=== PATIENT | female | born 1940 | race Caucasian/White ===

== ENCOUNTER 2017-10-17 18:51 | Inpatient (IN) | payer MEDICARE, OTHER ==
[~2017-10-17] VITALS: Ht 160 cm; Wt 83.4 kg
[2017-10-17 19:53] VITALS: BP 142/65; PULSE 67; TEMP 97.8
[2017-10-17 20:18] LABS: PARTIAL THROMBOPLASTIN TIME 129.5 SECONDS (26.0-37.0)
[2017-10-17 21:01] LABS: INR 1.1 (0.8-3.0); PROTHROMBIN TIME 12.2 SECONDS (9.7-12.8)
[2017-10-17] MEDS ORDERED: ALLEGRA 180MG180 MG PO (21:12)
[2017-10-17] MEDS ORDERED: ASPIRIN 81M81 MG/TA2 PO (21:12)
[2017-10-17] MEDS ORDERED: FERRO-TIME325 MG PO (21:13)
[2017-10-17] MEDS ORDERED: CITRACAL + D CA1 TAB (21:13)
[2017-10-17] MEDS ORDERED: THE MEDICINE S200 M2 PO (21:13)
[2017-10-17] MEDS ORDERED: METAMUCIL3.4 GM/DOS PO (21:14)
[2017-10-17] MEDS ORDERED: ZESTRIL 20MG TA20 MG PO (21:14)
[2017-10-17] MEDS ORDERED: MULTI VITAMINS1 TAB PO (21:15)
[2017-10-17] MEDS ORDERED: BETIMOL 0.5% OPH5 ML OU (21:16)
[2017-10-17] MEDS ORDERED: ULTRAM 50MG TAB50 MG PO (21:17)
[2017-10-17] MEDS ORDERED: TYLENOL 325MG325 MG PO (21:17)
[2017-10-17] MEDS ORDERED: VITAMIN D 400400 IU PO (21:19)
[2017-10-17] MEDS ORDERED: VITAMIN B100 CO1 TAB PO (21:19)
[2017-10-17 21:20] LABS: ALANINE AMINOTRANSFERASE 28 U/L (9-52); ALBUMIN 3.7 gm/dL (3.5-5.0); ALKALINE PHOSPHATASE 117 U/L (50-136); ANION GAP 6 mmol/L (7-16); AST,SGOT 28 U/L (15-37); BILIRUBIN,TOTAL 0.4 mg/dL (0.0-1.0); BLOOD UREA NITROGEN 14 mg/dL (7-17); CALCIUM 9.2 mg/dL (8.4-10.2); CARBON DIOXIDE 25 mmol/L (22-30); CHLORIDE 103 mmol/L (98-107); CHOLESTEROL 161 mg/dL (120-200); CHOLESTEROL RISK RATIO 2.3; CREATININE, serum 0.74 mg/dL (0.52-1.25); GLUCOSE 161 mg/dL (74-106); HDL CHOLESTEROL 68 mg/dL; LDL CHOLESTEROL 73 mg/dL; POTASSIUM 3.8 mmol/L (3.4-5.0); SODIUM 134 mmol/L (137-145); TOTAL PROTEIN 6.8 gm/dL (6.4-8.2); TRIGLYCERIDE 102 mg/dL
[2017-10-17 21:31] LABS: BASO % 0.7 % (0.0-2.0); EOS # 0.3 (0.0-0.7); EOS % 5.6 % (0-4.0); GRAN % 49.9 % (42.2-75.2); HEMATOCRIT 38.6 % (37.0-47.0); HEMOGLOBIN 13.1 g/dl (12.5-16.0); LYMPH % 32.7 % (20.0-51.0); MEAN CELL VOLUME 92 fl (80.0-100.0); MEAN CORPUSCULAR HEMOGLOBIN 31 pg (27.0-31.0); MEAN CORPUSCULAR HGB CONC 34 g/dl (33.0-37.0); MEAN PLATELET VOLUME 11.8 fl (7.4-10.4); MONO # 0.7 (0.1-0.6); MONO % 10.9 % (1.7-9.3); PLATELET COUNT 180 K/mm3 (130-400); RED BLOOD COUNT 4.18 M/mm3 (4.10-5.30); REDCELL DISTRIBUTION WIDTH-CV 13.4 % (11.5-14.5); TROPONIN-I < 0.012 ng/mL (0.000-0.034)
[2017-10-17 23:28] VITALS: BP 159/54; PULSE 57; TEMP 98.6
[2017-10-18] VITALS (14 sets, daily range): BP systolic 94–160; BP diastolic 56–80; PULSE 53–82; TEMP 97.8–98.6
[2017-10-18 06:44] LABS: HEMATOCRIT 37.6 % (37.0-47.0); HEMOGLOBIN 12.7 g/dl (12.5-16.0); MEAN CELL VOLUME 93 fl (80.0-100.0); MEAN CORPUSCULAR HEMOGLOBIN 31 pg (27.0-31.0); MEAN CORPUSCULAR HGB CONC 34 g/dl (33.0-37.0); MEAN PLATELET VOLUME 11.1 fl (7.4-10.4); PLATELET COUNT 180 K/mm3 (130-400); RED BLOOD COUNT 4.05 M/mm3 (4.10-5.30); REDCELL DISTRIBUTION WIDTH-CV 13.4 % (11.5-14.5)
[2017-10-18 06:50] LABS: PROTHROMBIN TIME 11.8 SECONDS (9.7-12.8)
[2017-10-18 06:57] LABS: ANION GAP 5 mmol/L (7-16); BLOOD UREA NITROGEN 13 mg/dL (7-17); CALCIUM 8.9 mg/dL (8.4-10.2); CARBON DIOXIDE 28 mmol/L (22-30); CHLORIDE 105 mmol/L (98-107); GLUCOSE 115 mg/dL (74-106); POTASSIUM 3.9 mmol/L (3.4-5.0); SODIUM 138 mmol/L (137-145)
[2017-10-18 07:09] LABS: TROPONIN-I < 0.012 ng/mL (0.000-0.034)
[2017-10-19 00:31] VITALS: BP 126/53; PULSE 65; TEMP 97.8
[2017-10-19 03:34] VITALS: BP 124/55; PULSE 57; TEMP 98
[2017-10-19 07:29] LABS: BASO % 0.4 % (0.0-2.0); EOS # 0.3 (0.0-0.7); EOS % 5.3 % (0-4.0); GRAN # 3.1 (1.4-6.5); GRAN % 62.2 % (42.2-75.2); HEMATOCRIT 39.4 % (37.0-47.0); HEMOGLOBIN 13.3 g/dl (12.5-16.0); LYMPH # 0.9 (1.2-3.4); LYMPH % 19.2 % (20.0-51.0); MEAN CELL VOLUME 93 fl (80.0-100.0); MEAN CORPUSCULAR HEMOGLOBIN 31 pg (27.0-31.0); MEAN CORPUSCULAR HGB CONC 34 g/dl (33.0-37.0); MEAN PLATELET VOLUME 11.7 fl (7.4-10.4); MONO # 0.6 (0.1-0.6); MONO % 12.7 % (1.7-9.3); PLATELET COUNT 189 K/mm3 (130-400); RED BLOOD COUNT 4.24 M/mm3 (4.10-5.30); REDCELL DISTRIBUTION WIDTH-CV 13.4 % (11.5-14.5)
[2017-10-19 07:33] VITALS: BP 140/64; PULSE 59; TEMP 98.4
[2017-10-19 07:38] LABS: CALCIUM 9.2 mg/dL (8.4-10.2); CREATININE, serum 0.72 mg/dL (0.52-1.25); POTASSIUM 3.9 mmol/L (3.4-5.0)
[2017-10-19] MEDS ORDERED: BRILINTA90 MG PO (07:47)
[2017-10-19] MEDS ORDERED: LIPITOR 40MG TA40 MG PO (08:49)
== END 2017-10-19 10:22 | disposition home or self-care (01) | DRG 247 ==
LOC: MEDICAL 18:51
PROVIDERS: Internal Medicine; Internal Medicine Cardiovascular Disease; Nurse Practitioner Family
PROC: 027034Z Dilation of Coronary Artery, One Artery with Drug-eluting Intraluminal Device, Percutaneous Approach (ICD-10-PCS; principal; 2017-10-18)
PROC: B2111ZZ Fluoroscopy of Multiple Coronary Arteries using Low Osmolar Contrast (ICD-10-PCS; 2017-10-18)
PROC: B2151ZZ Fluoroscopy of Left Heart using Low Osmolar Contrast (ICD-10-PCS; 2017-10-18)
PROC: 4A023N7 Measurement of Cardiac Sampling and Pressure, Left Heart, Percutaneous Approach (ICD-10-PCS; 2017-10-18)
DX: I25.110 Atherosclerotic heart disease of native coronary artery with unstable angina pectoris (principal); I10 Essential (primary) hypertension; Z87.891 Personal history of nicotine dependence; F41.9 Anxiety disorder, unspecified
CPT/HCPCS: 99239; C9600; J1644; J2250; J3010; J7030; Q9967